=== PATIENT | male | born 1980 | race Caucasian/White ===

== ENCOUNTER 2018-01-01 05:38 | Emergency (ER) | payer OTHER ==
[~2018-01-01] VITALS: Ht 172.7 cm; Wt 56.7 kg
--- NOTE | 2018-01-01 06:38 | Diagnostic Imaging Report ---
EXAMINATION: CXR 2 VIEW - HOPD INDICATION: Right-sided chest pain. COMPARISON: None FINDINGS: PA and lateral views TUBES and LINES: None. LUNGS: Lungs are well inflated. Lungs are clear. There is no evidence of pneumonia or pulmonary edema. PLEURA: No pleural effusion or pneumothorax. HEART AND MEDIASTINUM: The cardiomediastinal silhouette is unremarkable. BONES AND SOFT TISSUES: No acute osseous lesion. Soft tissues are unremarkable. UPPER ABDOMEN: No free air under the diaphragm. IMPRESSION: No acute thoracic abnormality. Signed by: DR. Nima Woody MD on 01/01/2018 6:34 AM
[2018-01-01] MEDS ORDERED: KETOROLAC TROMETHAMINE 30 MG/ML VIAL IM STA (06:49)
[2018-01-01] MEDS ORDERED: ROBAXIN-750750 MG PO (06:54)
[2018-01-01] MEDS ORDERED: KETOROLAC TROME10 MG PO (06:54)
[2018-01-01 07:11] VITALS: BP 138/84
== END 2018-01-01 07:05 | disposition home or self-care (01) ==
LOC: FSED 05:38
DX: R07.89 Other chest pain (principal); S29.011A Strain of muscle and tendon of front wall of thorax, initial encounter; F17.210 Nicotine dependence, cigarettes, uncomplicated
CPT/HCPCS: 71046; 80053; 82553; 84484; 85025; 93005; 99283; J1885